=== PATIENT | male | born 1970 | race African-American/Black ===

== ENCOUNTER 2018-05-15 10:35 | Emergency (ER) | payer OTHER ==
[~2018-05-15] VITALS: Ht 175.3 cm; Wt 75.0 kg
[2018-05-15] MEDS ORDERED: ABX PO (11:01)
[2018-05-15] MEDS ORDERED: CLIN150C9 PO (11:38)
[2018-05-15] MEDS ORDERED: CefTRIAXone SODIUM 1 GM/VIAL IM ONE (12:30)
[2018-05-15] MEDS ORDERED: LIDOCAINE HCL/PF 1% 2 ML VIAL IM ONE (12:30)
[2018-05-15 13:03] VITALS: BP 119/79
== END 2018-05-15 13:15 | disposition home or self-care (01) ==
LOC: EMS 10:36
DX: L02.11 Cutaneous abscess of neck (principal)
CPT/HCPCS: 10060; 96372; 99283; J0696; J3490